=== PATIENT | male | born 1970 | race African-American/Black ===

== ENCOUNTER 2020-01-24 02:07 | Emergency (ER) | payer SELFPAY ==
[~2020-01-24] VITALS: Ht 180.3 cm; Wt 156.8 kg
[2020-01-24 02:19] VITALS: Ht 180.3 cm; Wt 156.8 kg
[2020-01-24 03:07] LABS: BASOPHILS 0.3 % (0-2); EOSINOPHILS 0.1 % (0-7); HEMATOCRIT 42.1 % (42.0-54.0); HEMOGLOBIN 14.3 g/dL (13.5-17.5); IMMATURE GRANULOCYTES 0.4 % (0-5); LYMPHOCYTES 13.8 % (15-50); MCH 28.5 pg (26.0-34.0); MCV 83.9 fL (80.0-100.0); MEAN PLATELET VOLUME 10.3 fL (7.4-10.4); MONOCYTES 8.8 % (2-11); NEUTROPHILS 76.6 % (40-80); PLATELET COUNT 250 10x3/uL (130-400); RBC 5.02 10x6/uL (4.20-6.10); RDW 15.7 % (11.5-14.5); WBC 7.5 10x3/uL (4.8-10.8)
[2020-01-24 03:12] LABS: CALC OSMOLALITY 276 mosm/kg (275-300); CALCIUM 8.1 mg/dL (8.5-10.1); CHLORIDE - SERUM 99 mmol/L (98-107); CREATININE - SERUM 4.4 mg/dL (0.6-1.3); GLUCOSE 105 mg/dL (74-106); POTASSIUM - SERUM 3.4 mmol/L (3.5-5.1); SODIUM 134 mmol/L (136-145); UREA NITROGEN 38 mg/dL (7-18); eGFR NON AFRICAN AMERICAN 15 mL/min (90-120)
[2020-01-24 03:25] LABS: ALBUMIN 2.4 g/dL (3.4-5.0); ALKALINE PHOSPHATASE 73 U/L (30-120); ALT (SGPT) 84 U/L (10-68); BILIRUBIN - TOTAL 0.58 mg/dL (0.2-1.3); MAGNESIUM - SERUM 2.1 mg/dL (1.8-2.4); PRO BNP 18 pg/mL (0-125); PROTEIN - SERUM 7.9 g/dL (6.4-8.2)
[2020-01-24 03:35] LABS: C-REACTIVE PROTEIN 25.7 mg/dL (0.0-0.9); TROPONIN-I < 0.017 ng/mL (0.000-0.060)
[2020-01-24 04:30] VITALS: BP 142/85
== END 2020-01-24 05:05 | disposition home or self-care (01) ==
LOC: D.ER 02:07
PROVIDERS: Family Medicine
DX: U07.1 COVID-19 (principal); R06.02 Shortness of breath; R79.89 Other specified abnormal findings of blood chemistry; N17.9 Acute kidney failure, unspecified; J18.9 Pneumonia, unspecified organism